=== PATIENT | male | born 1995 | race Caucasian/White ===

== ENCOUNTER 2020-09-30 23:20 | Emergency (ER) | payer OTHER ==
[~2020-09-30 23:20] MED LIST: BENTYL 10MG CAP10 MG PO; BUSPIRONE HCL10 MG PO; CLARITIN10 MG PO; HYDROCODON-ACE1 EAC4 PO; NORCO 5-325 TA1 EACH PO; PANTOPRAZOLE SO40 MG PO
[2020-10-01 01:21] LABS: HEMOGLOBIN 16.3 gm/dl (14.0-17.5); RED BLOOD COUNT 5.43 M/UL (4.20-5.50); WHITE BLOOD COUNT 10.4 K/UL (4.5-11.0)
[2020-10-01 01:40] LABS: BUN/CREATININE RATIO 7 (0-10)
[2020-10-01] MEDS ORDERED: FLOMAX 0.4 MG0.4 MG PO (01:57)
[2020-10-01] MEDS ORDERED: HYDROCODON-ACE1 EAC4 PO (02:10)
== END 2020-10-01 02:50 | disposition home or self-care (01) ==
LOC: ER1 23:20
PROVIDERS: Physician Assistant
DX: N13.2 Hydronephrosis with renal and ureteral calculous obstruction (principal)
CPT/HCPCS: 80053; 81001; 83605; 85025; 87040; 87086; 96374; 96375; 99284; J1885; J2405; J7030